=== PATIENT | female | born 1980 | race American Indian/Alaskan Native ===

== ENCOUNTER 2017-10-13 15:49 | Emergency (ER) | payer OTHER ==
[2017-10-13 16:32] VITALS: BP 120/78; PULSE 81; RESP 18; TEMP 98.1; O2SAT 99
--- NOTE | 2017-10-13 17:04 | C.PDOC ---
History Of Present Illness 37-year-old female, presents to the emergency department with complaints of two week duration of rash. Patient was seen by PMD who diagnosed her with pityriasis rosea. Patient is using Hydrocortisone with minimal relief. Denies shortness of breath, nausea/vomiting or fever. Time Seen by Provider: 10/13/17 16:34 Chief Complaint (Nursing): Abnormal Skin Integrity History Per: Patient History/Exam Limitations: no limitations Past Medical History Reviewed: Historical Data, Nursing Documentation, Vital Signs Vital Signs: Last Vital Signs Temp 98.1 F 10/13/17 16:26 Pulse 81 10/13/17 16:26 Resp 18 10/13/17 16:26 BP 120/78 10/13/17 16:26 Pulse Ox 99 10/13/17 18:28 Family History: States: No Known Family Hx - Social History Hx Alcohol Use: No Hx Substance Use: No - Immunization History Hx Tetanus Toxoid Vaccination: No Hx Influenza Vaccination: No Hx Pneumococcal Vaccination: No Review Of Systems ENT: Negative for: Throat Swelling Respiratory: Negative for: Shortness of Breath Gastrointestinal: Negative for: Vomiting Skin: Positive for: Rash Neurological: Negative for: Weakness, Numbness Physical Exam - Physical Exam Appears: Non-toxic, No Acute Distress Skin: Normal Color, Warm, Dry, Rash (diffuse macular rash to back and neck w/ herald patch on left breast. ) Head: Normacephalic Eye(s): bilateral: PERRL Nose: Normal Oral Mucosa: Moist Lips: Normal Appearing Throat: Other (No airway compromise) Neck: Normal ROM Cardiovascular: Rhythm Regular, No Murmur Respiratory: Normal Breath Sounds, No Accessory Muscle Use Neurological/Psych: Oriented x3, Normal Speech ED Course And Treatment O2 Sat by Pulse Oximetry: 99 (RA) Pulse Ox Interpretation: Normal Progress Note: Patient treated with Claritin Disposition Counseled Patient/Family Regarding: Diagnosis, Need For Followup, Rx Given - Disposition Referrals: Bharathi Pineda DO [Staff Provider] - Disposition: HOME/ ROUTINE Disposition Time: 17:10 Condition: STABLE Additional Instructions: FOLLOW UP WITH YOUR DOCTOR IN 1-2 DAYS USE MEDICATIONS DIRECTED USE BENADRYL AT NIGHT FOR ITCHING IF NEEDED RETURN TO ER IF SYMPTOMS WORSEN Prescriptions: Loratadine [Claritin] 10 mg PO DAILY PRN #30 tab PRN Reason: Itching / Pruritus Zinc Oxide 20% 1 appl EXT TID PRN #1 tube PRN Reason: RASH/DRYNESS Instructions: Pityriasis Rosea Forms: [employer] (Kazakh) Print Language: INDONESIAN - POA Present On Arrival: None - Clinical Impression Clinical Impression: Pityriasis rosea - Scribe Statement The provider has reviewed the documentation as recorded by the Scribe (Carlos Monroy) All medical record entries made by the Scribe were at my direction and personally dictated by me. I have reviewed the chart and agree that the record accurately reflects my personal performance of the history, physical exam, medical decision making, and the department course for this patient. I have also personally directed, reviewed, and agree with the discharge instructions and disposition.
== END 2017-10-13 17:15 | disposition home or self-care (01) ==
LOC: C.ER 15:49
DX: L42 Pityriasis rosea (principal)

== ENCOUNTER 2018-10-27 16:17 | Emergency (ER) | payer OTHER ==
[2018-10-27] MEDS ORDERED: Naproxen 550 mg Tab PO STA (16:40)
--- NOTE | 2018-10-27 16:46 | C.PDOC ---
History Of Present Illness 38 y/o female presents to the ED complaining of left elbow pain for 1 week. No known injury or recent fall. 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 Otherwise patient denies having any fever, numbness, weakness, or other associated symptoms. Time Seen by Provider: 10/27/18 16:30 Chief Complaint (Nursing): Upper Extremity Problem/Injury History Per: Patient History/Exam Limitations: no limitations Onset/Duration Of Symptoms: Days Current Symptoms Are (Timing): Still Present Past Medical History Reviewed: Historical Data, Nursing Documentation, Vital Signs Vital Signs: Last Vital Signs Temp 98.2 F 10/27/18 16:29 Pulse 95 H 10/27/18 16:29 Resp 20 10/27/18 16:29 BP 132/80 10/27/18 16:29 Pulse Ox 97 10/27/18 16:29 - Medical History PMH: No Chronic Diseases Other Surgeries: Gastric sleeve Family History: States: Unknown Family Hx - Social History Hx Alcohol Use: No Hx Substance Use: No - Immunization History Hx Tetanus Toxoid Vaccination: No Hx Influenza Vaccination: No Hx Pneumococcal Vaccination: No Review Of Systems Except As Marked, All Systems Reviewed And Found Negative. Constitutional: Negative for: Fever, Chills Cardiovascular: Negative for: Chest Pain Respiratory: Negative for: Shortness of Breath Musculoskeletal: Positive for: Arm Pain (left elbow) Skin: Negative for: Rash Neurological: Negative for: Weakness, Numbness Physical Exam - Physical Exam Appears: Non-toxic, No Acute Distress Skin: Normal Color, Warm, No Rash Head: Atraumatic, Normacephalic Eye(s): bilateral: Normal Inspection, PERRL, EOMI Oral Mucosa: Moist Neck: Normal ROM Chest: Symmetrical Respiratory: No Accessory Muscle Use, Other (Speaking in complete sentences, Normal inspiratory effort) Extremity: Normal ROM, Tenderness (to lateral aspect of left elbow), No Deform ity, No Swelling Pulses: Left Radial: Normal, Right Radial: Normal Neurological/Psych: Oriented x3, Normal Speech, Normal Motor, Normal Sensation ED Course And Treatment O2 Sat by Pulse Oximetry: 97 (RA) Pulse Ox Interpretation: Normal Medical Decision Making Medical Decision Making: Impression: Elbow pain - lateral epicondylitis vs fx Plan: - Left elbow x-ray - 550 mg PO Naproxen xr neg as read by me. pain improved. return to er with worsening symptoms or concerns. Disposition - Disposition Referrals: [facility] [Outside] Disposition: HOME/ ROUTINE Disposition Time: 17:00 Condition: STABLE Additional Instructions: see specialist. return to er with worsening. Prescriptions: Naproxen 500 mg PO BID PRN #14 tab PRN Reason: Pain, Mild (1-3) Instructions: Lateral Epicondylitis (DC), Elbow Sprain (DC) Forms: [employer] (Northern Irish) - Clinical Impression Clinical Impression: Elbow pain - Scribe Statement The provider has reviewed the documentation as recorded by the Bronwyn Caicedo Provider Attestation: All medical record entries made by the Bronwyn were at my direction and personally dictated by me. I have reviewed the chart and agree that the record accurately reflects my personal performance of the history, physical exam, medical decision making, and the department course for this patient. I have also personally directed, reviewed, and agree with the discharge instructions and disposition.
[2018-10-27] MEDS ORDERED: Naproxen 550 mg Tab PO ONE (16:51)
[2018-10-27 17:41] VITALS: BP 126/83; PULSE 104; RESP 18; TEMP 98.3
[2018-10-27 18:23] VITALS: O2SAT 97
--- NOTE | 2018-10-28 08:40 | RAD ---
Date of service: 10/27/2018 PROCEDURE: Radiographs of the left elbow. HISTORY: pain COMPARISON: No prior. FINDINGS: BONES: . No fracture. JOINTS: Trace ulnar sided osteoarthritis. SOFT TISSUES: Normal. JOINT EFFUSION: None. OTHER FINDINGS: None IMPRESSION: No fracture lytic lesion. Trace ulnar sided arthrosis.
== END 2018-10-27 17:35 | disposition home or self-care (01) ==
LOC: C.ER 16:17
DX: M25.522 Pain in left elbow (principal)